=== PATIENT | female | born 1955 | race Caucasian/White ===

== ENCOUNTER 2020-12-28 10:46 | Emergency (ER) | payer OTHER ==
--- NOTE | 2020-12-28 11:00 | EDM.PDOC ---
ED HPI GENERAL MEDICAL PROBLEM - General Chief Complaint: Neuro Symptoms/Deficits Stated Complaint: STROKE SX Time Seen by Provider: 12/28/20 10:51 - History of Present Illness INITIAL COMMENTS - FREE TEXT/NARRATIVE: 65-year-old female presents the emergency room with a significant neurologic type deficit. Her last known normal was last night when she went to bed. She awoke at about 7 AM this morning and had some noticeable weakness and difficulty walking with her left leg however she was ambulatory. According to the she has not had any slurred speech but her speech is a little slower than normal. The patient i s from [facility] and they are in the process of driving home. They continued on their way from [place] and the patient was noted to be a little bit worse when they were in [place]. And from there to here they were looking for the closest hospital.. The patient has really no significant past medical history other than being a smoker. He smokes about a half a pack a day no recen t alcohol she does not use drugs. - Related Data Allergies Allergy/AdvReac Type Severity Reaction Status Date / Time No Known Allergies Allergy Verified 12/28/20 10:55 Home Meds: Home Meds . [No Known Home Meds] 12/28/20 [History] ED ROS GENERAL - Review of Systems Review Of Systems: See Below Constitutional: Reports: No Symptoms HEENT: Reports: No Symptoms Respiratory: Reports: No Symptoms Cardiovascular: Reports: No Symptoms GI/Abdominal: Reports: No Symptoms : Reports: No Symptoms Musculoskeletal: Reports: Other (Left-sided weakness) Neurological: Reports: Other (Left-sided weakness speech a little slower than normal) Psychiatric: Reports: No Symptoms ED EXAM, NEURO - Physical Exam Exam: See Below Exam Limited By: No Limitations General Appearance: Alert, Other (She answers questions appropriately but is slow to respond) Eye Exam: Bilateral Eye: Normal Inspection, PERRL Ears: Normal External Exam, Normal Canal, Hearing Grossly Normal, Normal TMs Nose: Normal Inspection, Normal Mucosa, No Blood Throat/Mouth: Normal Inspection, Normal Lips, Normal Teeth, Normal Gums, Normal Oropharynx, Normal Voice, No Airway Compromise Head Exam: Atraumatic, Normocephalic Neck: Normal Inspection, Supple, Non-Tender, Full Range of Motion. No: Lymphadenopathy (L), Lymphadenopathy (R) Respiratory/Chest: No Respiratory Distress, Lungs Clear, Normal Breath Sounds Cardiovascular: Regular Rate, Rhythm, No Edema, No Murmur GI/Abdominal: Normal Bowel Sounds, Soft, Non-Tender Neurological: Other (Significant weakness in the left lower leg to a lesser degree the left upper extremity especially the shoulder and elbow area.) Back Exam: Normal Inspection. No: CVA Tenderness (L), CVA Tenderness (R) Extremities: Normal Inspection, No Pedal Edema #1 Interpretation EKG Date: 12/28/20 Rhythm: NSR [place]: Normal P-Wave: Present QRS: Other (Q waves inferior do not appear to be pathologic Q waves in V3 potentially pathologic) ST-T: Normal (Unspecific nondiagnostic) QT: Normal Comparison: NA - No Prior EKG EKG Interpretation Comments: Abnormal EKG Course - Vital Signs Last Recorded V/S: Last Vital Signs Temp 37.1 C 12/28/20 10:52 Pulse 84 12/28/20 10:52 Resp 16 12/28/20 10:52 BP 219/98 H 12/28/20 10:52 Pulse Ox 97 12/28/20 10:52 - Orders/Labs/Meds Orders: Active Orders 24 hr Category Date Time Status CORONAVIRUS COVID-19 EBONIE [[facility]] Stat Lab 12/28/20 11:00 Received INR,PT,PROTHROMBIN TIME [[facility]] Stat Lab 12/28/20 11:05 Received PTT,PARTIAL THROMBOPLSTIN TIME [COAG] Stat Lab 12/28/20 11:05 Received Labs: Laboratory Tests 12/28/20 12/28/20 12/28/20 Range/Units 10:53 11:05 11:05 WBC 7.18 (3.98-10.04) K/mm3 RBC 5.45 H (3.98-5.22) M/mm3 Hgb 16.6 H (11.2-15.7) gm/dl Hct 49.5 H (34.1-44.9) % MCV 90.8 (79.4-94.8) fl MCH 30.5 (25.6-32.2) pg MCHC 33.5 (32.2-35.5) g/dl RDW Std Deviation 49.3 H (36.4-46.3) fL Plt Count 330 (182-369) K/mm3 MPV 9.2 L (9.4-12.3) fl Neut % (Auto) 72.3 H (34.0-71.1) % Lymph % (Auto) 17.7 L (19.3-51.7) % [place] % (Auto) 8.6 (4.7-12.5) % Eos % (Auto) 1.0 (0.7-5.8) Baso % (Auto) 0.3 (0.1-1.2) % Neut # (Auto) 5.19 (1.56-6.13) K/mm3 Lymph # (Auto) 1.27 (1.18-3.74) K/mm3 [place] # (Auto) 0.62 H (0.24-0.36) K/mm3 Eos # (Auto) 0.07 (0.04-0.36) K/mm3 Baso # (Auto) 0.02 (0.01-0.08) K/mm3 Sodium 136 (136-145) mEq/L Potassium 4.5 (3.5-5.1) mEq/L Chloride 100 (98-107) mEq/L Carbon Dioxide 26 (21-32) mEq/L Anion Gap 14.5 (5-15) BUN 9 (7-18) mg/dL Creatinine 0.7 (0.55-1.02) mg/dL Est Cr Clr Drug Dosing 74.02 mL/min Estimated GFR (MDRD) > 60 (>60) mL/min BUN/Creatinine Ratio 12.9 L (14-18) Glucose 96 (70-99) mg/dL POC Glucose 89 (70-99) mg/dL Calcium 9.5 (8.5-10.1) mg/dL Total Bilirubin 0.3 (0.2-1.0) mg/dL AST 17 (15-37) U/L ALT 19 (14-59) U/L Alkaline Phosphatase 99 (46-116) U/L Troponin I < 0.017 (0.00-0.056) ng/mL Total Protein 8.1 (6.4-8.2) g/dl Albumin 4.0 (3.4-5.0) g/dl Globulin 4.1 gm/dL Albumin/Globulin Ratio 1.0 (1-2) - Re-Assessments/Exams Free Text/Narrative Re-Assessment/Exam: 12/28/20 11:36 Case was discussed with Dr. Halie, on-call neurologist at [facility] in [place] who recommends the patient be sent over. The ER Patient will go to the emergency room at [facility] in [place]. Case was discussed with Dr. Sagastume, ER physician at [facility] who kindly accepts the patient we are working on transfer at this time. 12/28/20 11:47 Her stroke score is 10 Departure - Departure Time of Disposition: 11:38 Disposition: DC/Tfer to Acute Hospital 02 Clinical Impression: CVA (cerebral vascular accident) - Discharge Information Referrals: PCP,Not In Area [Primary Care Provider] - Forms: ED Department Discharge Sepsis Event Note (ED) - Focused Exam Vital Signs: Vital Signs Temp Pulse Resp BP Pulse Ox 12/28/20 10:52 37.1 C 84 16 219/98 H 97 - My Orders Last 24 Hours: My Active Orders 12/28/20 11:00 CORONAVIRUS COVID-19 EBONIE [[facility]] Stat 12/28/20 11:05 INR,PT,PROTHROMBIN TIME [[facility]] Stat PTT,PARTIAL THROMBOPLSTIN TIME [[facility]] Stat - Assessment/Plan Last 24 Hours: My Active Orders 12/28/20 11:00 CORONAVIRUS COVID-19 EBONIE [[facility]LEC] Stat 12/28/20 11:05 INR,PT,PROTHROMBIN TIME [[facility]] Stat PTT,PARTIAL THROMBOPLSTIN TIME [[facility]] Stat
--- NOTE | 2020-12-28 11:21 | CT ---
Head CT Technique: Multiple axial sections through the brain were obtained. Intravenous contrast was not utilized. Reconstructed coronal and sagittal images were obtained. Comparison: No previous intracranial imaging is available. Findings: Ventricles along with basal cisterns and sulci over the convexities as well as the cerebellum are mildly prominent. There is diffuse diminished density noted within the periventricular and subcortical white matter which most likely represent small vessel ischemic demyelination change. 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 Small old infarct is noted next to the left thalamus. Old infarct is also noted within other portions of the left basal ganglia. No evidence of intracranial hemorrhage is seen. No midline shift or mass-effect is seen. Bone window settings were reviewed. Visualized paranasal sinuses and mastoid sinuses show nothing acute. No acute calvarial finding is seen. There is vascular calcification within the distal vertebral arteries and within the carotid siphon. Impression: 1. Prominent senescent change as noted above. 2. No definite acute abnormality is appreciated on noncontrast head CT study. Note: If patient has specific symptoms indicating further evaluation, MRI study could then be considered. Diagnostic code #2
== END 2020-12-28 13:53 ==
LOC: JD.ED 10:46
DX: I63.9 Cerebral infarction, unspecified (principal)
CPT/HCPCS: 36415; 70450; 70450-26; 80053; 82947; 84484; 85025; 85610; 85730; 93005; 93010; 99284; 99285-25; U0002